=== PATIENT | female | born 1980 | race Caucasian/White ===

== ENCOUNTER 2024-01-02 18:55 | Emergency (ER) | payer OTHER, SELFPAY ==
[2024-01-02 19:00] VITALS: BP 115/75
--- NOTE | 2024-01-02 19:39 | ED.GENMED ---
History of Present Illness
General
Chief Complaint: Generalized Pain
Time Seen by Provider: 01/02/24 19:17
Travel History
Have you had any contact with someone who has COVID-19?: No
Do you have any symptoms of coronavirus? Fever > 100 degrees, chills, cough, shortness of breath, sore throat, loss of taste or smell, muscle aches, or headache?: No
History of Present Illness
History of Present Illness:
HPI: Patient presents with general myalgias and diffuse abdominal pain. She was also concerned because she was tachycardic throughout the day with a resting heart rate of 140s. She was also very concerned of the possibility of repeat bout of
diverticulitis that she has had this in the past. She reports pain not only in the lower abdomen but also in the upper abdomen.
EXAM:
GENERAL: Well appearing in mild distress, she is thin
HEENT: Moist oral mucosa
CARDIOVASCULAR: No murmurs, normal heart rate�currently at 88 on my physical examination, regular rhythm, No chest wall tenderness
PULMONARY: No respiratory distress, breath sounds are clear and equal
ABDOMEN: Soft with no peritoneal signs, minimal diffuse abdominal tenderness
NEUROLOGIC: Excellent strength all extremities, no coordination deficits
PSYCHIATRIC: Appropriate mental status, normal insight and judgement
EXTREMITIES: Nontender, no edema, moves all extremities equally
SKIN: No rash, no lesions
TIME OF INITIAL ENCOUNTER: 7:45 PM
NUMBER AND COMPLEXITY OF PROBLEMS ADDRESSED AT THE ENCOUNTER
� Chronic conditions affecting care: Migraine, diverticular disease, anxiety/depression
� Acute Exacerbation and/or Progression of Chronic Illness: This is an acute problem
� Differential Diagnosis includes: Dehydration, SUNITA, diverticulitis, viral syndrome
AMOUNT AND/OR COMPLEXITY OF DATA TO BE REVIEWED AND ANALYZED
� I performed an independent evaluation of and my interpretation is:
EKG: Sinus 85, no acute ST abnormality
CT: I personally viewed CT imaging and agree with radiologist interpretation
X-rays:
Laboratory Studies: White count 11.9, hemoglobin 13.5, chemistries and hCG unremarkable
Other:
� Review of other/old records: The patient was seen here [address] showed mild acute sigmoid diverticulitis without abscess along with chronic wall thickening of the gastric antrum, there was also possible diverticulitis
in 2020, earlier studies did not show diverticulitis
� Clinical information was obtained by an independent historian: None needed
� Prescriptions/Medications Considered but not given:
� Further testing considered but not performed:
RISK OF COMPLICATIONS AND/OR MORBIDITY OR MORTALITY OF PATIENT MANAGEMENT
� Social determinants of health affecting care: Lives at home
� Discussion with other providers:
� Escalation of care including admission/observation vs risk of discharge considered: The patient was given IV fluids and will check labs. Given her concerns of diverticular disease, will obtain CT imaging with oral and IV
contrast. She did complain of pain and we gave a dose of Toradol. She was given IV fluids. On reassessment at 10:40 PM, although she reports feeling somewhat unwell she appears fairly comfortable resting on her side on the stretcher. Minimal
leukocytosis noted however this is less than it was when she was here with diverticulitis last year. Other labs are unremarkable. EKG was also obtained which was unremarkable.
Past History
Past History
ED Past Medical History: Asthma, GERD and Psychiatric (Anxiety)
ED Past Surgical History: Orthopedic and Other
Social History
Tobacco: Non-smoker
Alcohol: Occasional
Drug: None
Personal:
Living: with family
Employment: Other (student)
Phy Exam
Physical Exam
Physical Exam:
See HPI
Course
Orders/Labs/Results
Orders:
Orders
01/02/24 19:39
0.9% Sodium Chloride 1000 ml [Nss] 1,000 ml IV BOLUS
01/02/24 19:40
Test Result ONCE
01/02/24 19:47
CT Abd/pel W Iv And Oral Contr Urgent
Comment:
Reason For Exam: diffuse abd pain; she is concerned for diverticuli
Iohexol [Omnipaque] See Protocol PO NOW STA
01/02/24 19:48
Iohexol [Omnipaque] 50 ml .ROUTE .STK-MED ONE
01/02/24 19:53
Electrocardiogram (*1) Urgent
Reason for Study: Chest Pain
EKG- Treatment ONCE
01/02/24 20:00
0.9% Sodium Chloride 1000 ml [Nss] 1,000 ml IV BOLUS
01/02/24 20:02
Complete Blood Count/With Diff Urgent
Comprehensive Metabolic Panel Urgent
HCG, Serum Qualitative Screen Urgent
Lipase Urgent
01/02/24 20:04
Ketorolac [Toradol] 15 mg .ROUTE .STK-MED ONE
01/02/24 20:05
Ketorolac [Toradol] 15 mg IV NOW STA
01/02/24 21:33
Amiodarone [Cordarone] 900 mg DEXTROSE 5% PVC-free BAG [D5W PVC-free BAG] 500 ml IV NOW
Initial Dose in mg/min:: 1
Duration of initial dose (hours):: 6
Subsequent dose in mg/min:: 0.5
Duration of subsequent dose (hours):: 18
Maximum dose in mg/min:: 1
Hold and notify provider if:: Heart rate < 60 BPM or SBP < 90 mmHg or MAP < 60 mmHg
Abnormal Lab Results
01/02/24
20:02
WBC 11.9 H 10^3/uL
(4.8-10.8)
MCHC 31.8 L g/dL
(33.0-37.0)
Absolute Neuts (auto) 9.9 H 10^3/uL
(1.4-6.5)
Absolute Lymphs (auto) 0.6 L 10^3/uL
(1.2-3.4)
Absolute Eos (auto) 1.0 H 10^3/uL
(0-0.7)
Neutrophils % 83.6 H %
(42.2-75.2)
Lymphocytes % 5.2 L %
(20.5-51.1)
Eosinophils % 8.1 H %
(0-6)
01/02/24 20:02
01/02/24 20:02
Vital Signs
Initial and Last Documented VS:
Initial Vital Signs
Temp Pulse Resp BP Pulse Ox
98.2 F 94 22 115/75 100
01/02/24 19:00 01/02/24 19:00 01/02/24 19:00 01/02/24 19:00 01/02/24 19:00
Last Documented Vital Signs
Temp Pulse Resp BP Pulse Ox
98.2 F 93 19 100/61 99
01/02/24 19:00 01/02/24 22:30 01/02/24 22:30 01/02/24 21:01 01/02/24 21:45
*Critical Care Note
Total Time (30-74mins, 75-104mins- exclusive of procedures): Not Applicable
ED Attending Note
-
Portions of this chart may have been created with voice recognition software.� Occasional wrong word or��sound alike� substitutions may have occurred due to the inherent limitations of voice recognition software.
Discharge Plan
Departure
Patient Disposition: Home (Routine Discharge)
Date of Disposition: 01/02/24
Time of Disposition: 22:36
Patient with high blood pressure during this ER visit?: Yes
Discharge Problem:
Abdominal pain
Instructions: Abdominal Pain
Prescriptions:
No Action
bupropion HCl 75 MG tablet
75 mg PO DAILY
norgestimate-ethinyl estradiol [Tri-Estarylla] 1 EACH tablet
1 ea PO DAILY
dextroamphetamine-amphetamine [Adderall] 5 MG tablet
5 mg PO DAILY
Patient Comments:
10/03/16: Patient only takes Adderall when working.
escitalopram oxalate 20 MG tablet
20 mg PO DAILY
albuterol sulfate 1 PUFF HFA aerosol inhaler
1 puff inhalation R Q4HPRN PRN (Reason: sob, wheezing)
alprazolam 0.25 MG tablet
DAILY PRN (Reason: anxiety)
Patient Comments:
would take half the dose
amoxicillin-pot clavulanate 1 TABLET tablet
1 tab PO Q12 Qty: 14 0RF
fluconazole 150 MG tablet
150 mg PO NOW Qty: 1 0RF
famotidine [Pepcid] 20 mg tablet
20 mg PO BID Qty: 20 0RF
ondansetron 4 mg tablet,disintegrating
4 mg PO TIDPRN PRN (Reason: nausea/vomiting) Qty: 5 0RF
amoxicillin-pot clavulanate 875-125 mg tablet
1 tab PO BID 10 Days Qty: 20 0RF
fluconazole [Diflucan] 150 mg tablet
150 mg PO ONCE Qty: 1 0RF
hydrocodone-acetaminophen 5-300 mg tablet
1 tab PO BID PRN (Reason: pain) Qty: 7 0RF
Referrals:
NONE,* [Active] -
Activity Restrictions/Additional Instructions:
The cause of your symptoms and pain is unclear. Your white blood cell count is slightly high but not as high as it was last year. The CAT scan again shows diverticulosis but no sign of diverticulitis (no sign of need for antibiotics). There is no
sign of inflammation on the CAT scan. Your EKG was unremarkable. Your vital signs are normal. testing is negative, electrolytes, kidney function, liver test, pancreas is all normal. Your hemoglobin level is normal.
Interventions
Interventions:
*Risk Screen - Suicide Last Done: 01/02/24 19:00
*General Assessment Last Done: 01/02/24 20:07
*Neglect/Abuse Screening Last Done: 01/02/24 19:00
*ED COVID-19 Vaccine History Last Done: 01/02/24 20:07
ED- Neurological Assessment Last Done: 01/02/24 20:06
Discharge Date and Time
Print Language: CONGOLESE
[2024-01-02] MEDS: OMNIPAQUE 50 ML PO (19:54)
[2024-01-02] MEDS: NSS 1000 IV (20:08)
[2024-01-02] MEDS: TORADOL 15 MG IV (20:08)
[2024-01-02 20:14] LABS: % Basophils 0.4 % (0-2); % Eosinophils 8.1 % (0-6); % Immature Granulocytes 0.3 % (0-0.5); % Lymphocytes 5.2 % (20.5-51.1); % Monocytes 2.4 % (1.7-9.3); % Neutrophils 83.6 % (42.2-75.2); Absolute Basophils 0.1 10^3/uL (0-0.2); Absolute Lymphocytes 0.6 10^3/uL (1.2-3.4); Absolute Monocytes 0.3 10^3/uL (0.1-0.6); Absolute Neutrophils 9.9 10^3/uL (1.4-6.5); Hematocrit 42.4 % (37.0-47.0); Hemoglobin 13.5 g/dL (12.0-16.0); Mean Corp Hgb Conc. 31.8 g/dL (33.0-37.0); Mean Corpuscular Hgb 28.1 pg (27.0-31.0); Mean Corpuscular Volume 88.1 fL (81.0-99.0); Mean Platelet Volume 9.7 fL (7.4-10.4); Nucleated Red Blood Cells % 0 %; Platelet Count 300 10^3/uL (130-400); Red Blood Cell Count 4.81 10^6/uL (4.20-5.40); Red Cell Dist. Width 13.6 % (11.5-14.5); White Blood Cell Count 11.9 10^3/uL (4.8-10.8)
[2024-01-02 20:20] LABS: HCG, Serum Qualitative Screen Negative
[2024-01-02 20:25] LABS: ALT (SGPT) 18 U/L (0-35); AST (SGOT) 25 U/L (14-36); Albumin 4.3 g/dl (3.5-5.0); Alkaline Phosphatase 48 U/L (38-126); Blood Urea Nitrogen 16 mg/dl (7-17); Calcium 9.3 mg/dl (8.4-10.2); Carbon Dioxide 24 mmol/L (22-30); Chloride 103 mmol/L (98-107); Glucose 94 mg/dl (70-99); Lipase 98 U/L (23-300); Potassium 4.1 mmol/L (3.5-5.1); Sodium 135 mmol/L (135-145); Total Bilirubin 0.7 mg/dl (0.2-1.3); Total Protein 7.4 g/dl (6.3-8.2); eGFR > 60.00
[2024-01-02 21:01] VITALS: BP 100/61
== END 2024-01-02 22:48 | disposition home or self-care (01) ==
LOC: EMR 18:55
PROVIDERS: EMERGENCY PHYSICIAN Emergency Medicine; FAMILY PHYSICIAN Nurse Practitioner Adult Health
DX: R10.84 Generalized abdominal pain (principal); R00.0 Tachycardia, unspecified; F41.9 Anxiety disorder, unspecified; J45.909 Unspecified asthma, uncomplicated; K21.9 Gastro-esophageal reflux disease without esophagitis
CPT/HCPCS: 99284; 96374; 96361; 74177; 80053; 83690; 84703; 85025; 93005; Q9967

== ENCOUNTER → 2024-11-24 13:43 | Outpatient (REF) | payer OTHER, SELFPAY | LOC: PAVMRI 13:43 | PROVIDERS: ATTENDING PHYSICIAN Nurse Practitioner Adult Health | DX: R51.9 Headache, unspecified (principal) | CPT/HCPCS: 70551 ==